=== PATIENT | female | born 1935 | race Caucasian/White ===

== ENCOUNTER 2017-08-25 17:49 | Inpatient (IN) | payer OTHER, MEDICARE ==
--- NOTE | 2017-08-25 18:31 | PDOC ---
History of Present Illness - History of Present Illness Initial Comments: 08/25/17 18:57 The patient is a 82 year old female, with a significant past medical history of diabetes, peripheral neuropathies, and HTN, who came into the emergency department with her family complaining of a persistent headache and dizziness( lightheadedness) for 3 weeks. Patient states she has has been dizzy and lightheaded since falling at home 3 weeks ago. She also has an unsteady gait. She hit her head when she fell and had a CT of the head and neck done on 08/11 at an outpatient clinic. CT results show no fractures or bleed. She denies recent fevers, chills. She denies recent vomit, diarrhea or constipation. She denies recent dysuria, frequency, urgency or hematuria. She denies recent chest pain, abdominal pain, or shortness of breath. 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) CVA: No COPD: No CHF: No Dementia: No Diabetes: Yes GI Disorders: Yes (ACID REFLUX) Disorders: No HTN: Yes Hypercholesterolemia: Yes Liver Disease: No Seizures: No Thyroid Disease: Yes - Surgical History Abdominal Surgery: No Appendectomy: No Cardiac Surgery: No Cholecystectomy: No Lung Surgery: No Neurologic Surgery: No Orthopedic Surgery: No - Suicide/Smoking/Psychosocial Hx Smoking Status: No Smoking History: Never smoked Have you smoked in the past 12 months: No Number of Cigarettes Smoked Daily: 0 Information on smoking cessation initiated: No Hx Alcohol Use: No Drug/Substance Use Hx: No Substance Use Type: None Hx Substance Use Treatment: No <Ruth Faria - Last Filed: 08/25/17 23:13> - Past Medical History Allergies/Adverse Reactions: Allergies Allergy/AdvReac Type Severity Reaction Status Date / Time shellfish derived AdvReac Verified 08/25/17 17:57 Home Medications: Ambulatory Orders Aspirin [ASA -] 81 mg PO DAILY #0 tab.chew 11/26/12 Atorvastatin Calcium [Lipitor] 10 mg PO HS #0 tablet 11/26/12 Levothyroxine [Synthroid -] 75 mcg PO DAILY@0700 #0 tablet 11/26/12 Valsartan [Diovan] 80 mg PO DAILY 12/26/13 Esomeprazole Magnesium [Nexium 24Hr] 20 mg PO DAILY 08/25/17 Glimepiride [Amaryl -] 0 mg PO DAILY 08/25/17 Sitagliptin Phos/Metformin HCl [Janumet 50-500 mg Tablet] 1 each PO BID Review of Systems - Review of Systems Comments:: 08/25/17 18:59 CONSTITUTIONAL: Present: dizziness/light-headedness Absent: fever, no chills, no fatigue EYES: Absent: visual changes ENT: Absent: ear pain, no sore throat CARDIOVASCULAR: Absent: chest pain, no palpitations RESPIRATORY: Absent: cough, no SOB GI: Absent: abdominal pain, no nausea, no vomiting, no constipation, no diarrhea GENITOURINARY: Absent: dysuria, no frequency, no hematuria MUSCULOSKELETAL: Absent: back pain, no arthralgia, no myalgia SKIN: Absent: rash NEURO: Present: headache, unsteady gait <Shelby Ferreira - Last Filed: 08/25/17 21:24> *Physical Exam - Vital Signs Last Vital Signs Temp Pulse Resp BP Pulse Ox 98.9 F 100 H 16 157/92 99 08/25/17 17:54 08/25/17 17:54 08/25/17 17:54 08/25/17 17:54 08/25/17 17:54 - Physical Exam Comments: 08/25/17 19:01 GENERAL: Alert oriented X3. No LAC, no sutures. Well-appearing, well-nourished. No apparent distress. HEENT: No pinpoint for cervical vertebral tendernesses.No evidence of any head trauma.Normocephalic, atraumatic. PERRL, EOM intact. CARDIOVASCULAR: Normal S1, S2. Regular rate and rhythm. PULMONARY: Clear to auscultation bilaterally. ABDOMEN: Soft, non-distended, non-tender. EXTREMITIES: Normal ROM in all four extremities. No pitting edema. No gross deformities. SKIN: Warm, dry. No rash NEUROLOGICAL: + Unsteady gait. Headache. Dizziness. No focal neurological deficits. <Shelby Ferreira - Last Filed: 08/25/17 21:24> - Vital Signs Last Vital Signs Temp Pulse Resp BP Pulse Ox 98.9 F 100 H 16 157/92 99 08/25/17 17:54 08/25/17 17:54 08/25/17 17:54 08/25/17 17:54 08/25/17 17:54 <Ruth Faria - Last Filed: 08/25/17 23:13> ED Treatment Course - LABORATORY CBC & Chemistry Diagram: 08/25/17 18:38 08/25/17 19:10 - Consult/PCP Case discussed with consulting physician: Debi Rubi - Additional Consults Consult/PCP: Dr. Donahue/ Neuro <Shelby Ferreira - Last Filed: 08/25/17 21:24> - LABORATORY CBC & Chemistry Diagram: 08/25/17 18:38 08/25/17 19:10 <Ruth Faria - Last Filed: 08/25/17 23:13> Medical Decision Making - Medical Decision Making 08/25/17 21:04 82-year-old female presents with family members because of dizziness and some increased ataxia. She reports that she fell on August 11 and came as an outpatient to radiology and had a CAT scan of her head and neck at that time. Her primary doctor Center to outpatient radiology is Dr. Martín Whalen. On exam, she is ambulatory, alert and oriented 3, moving all her extremities. She feels she has an unsteady gait that has worsened over the last couple days. CAT scan of the head didn't show any interval development of 0.5 cm hypodense area consistent with an infarct in the right internal capsule c/w acute infarct 08/25/17 23:03 <Ruth Faria - Last Filed: 08/25/17 23:13> *DC/Admit/Observation/Transfer - Attestations Scribe Attestion: 08/25/17 19:05 Documentation prepared by Shelby Ferreira, acting as medical liaison for Ruth Faria MD. <Shelby Ferreira - Last Filed: 08/25/17 21:24> - Discharge Dispostion Admit: Yes <Ruth Faria - Last Filed: 08/25/17 23:13> Diagnosis at time of Disposition: Ataxia Stroke Qualifiers: CVA mechanism: thrombosis Precerebral and cerebral artery: unspecified cerebral artery Qualified Code(s): I63.30 - Cerebral infarction due to thrombosis of unspecified cerebral artery - Referrals
[2017-08-25 19:25] LABS: BASOPHIL 0.7 % (0-2.0); MCH 27.9 pg (25.7-33.7); MEAN CELL VOLUME 84.5 fl (80-96); MEAN PLT VOLUME 9.4 fl (7.5-11.1); NEUTROPHILS 67.8 % (42.8-82.8); PLATELET COUNT 192 K/MM3 (134-434); RDW 15.4 % (11.6-15.6); WHITE BLOOD COUNT 7.8 K/mm3 (4.0-10.0)
[2017-08-25] MEDS ORDERED: MECLIZINE HCL 25 MG TABLET (FP) PO ONE (19:25)
[2017-08-25 20:04] LABS: ALBUMIN 3.8 g/dl (3.4-5.0); ANION GAP 7 (8-16); BILIRUBIN,TOTAL 0.2 mg/dL (0.2-1.0); CALCIUM 8.7 mg/dL (8.5-10.1); CO2 26 mmol/L (21-32); CREATININE 1.1 mg/dL (0.55-1.02); GLUCOSE,RANDOM 61 mg/dL (74-106); SGPT/ALT 24 U/L (12-78); TOT PROT 7.9 g/dl (6.4-8.2)
[2017-08-25 20:06] LABS: ALK PHOS 68 U/L (45-117); TROPONIN I < 0.02 ng/ml (0.00-0.05)
[2017-08-25 20:07] LABS: SGOT/AST 22 U/L (15-37)
[2017-08-25 20:08] LABS: CPK 116 IU/L (26-192)
[2017-08-25] MEDS ORDERED: MECLIZINE HCL 25 MG TABLET (FP) ONE (20:26)
[2017-08-25 20:41] LABS: URINE APPEARANCE CLEAR; URINE BILIRUBIN NEGATIVE (NEGATIVE); URINE BLOOD NEGATIVE (NEGATIVE); URINE COLOR LTYELLOW; URINE GLUCOSE (UA) NEGATIVE (NEGATIVE); URINE KETONE NEGATIVE (NEGATIVE); URINE LEUK ESTERASE NEGATIVE (NEGATIVE); URINE NITRITE NEGATIVE (NEGATIVE); URINE PROTEIN NEGATIVE (NEGATIVE); URINE UROBILINOGEN NEGATIVE mg/dL (0.2-1.0)
[2017-08-25] MEDS ORDERED: ASPIRIN 325 MG TABLET PO ONE (21:09)
[2017-08-25] MEDS ORDERED: ATORVASTATIN CA 40 MG TABLET (FP) PO ONE (21:09)
[2017-08-25] MEDS ORDERED: ASPIRIN 325 MG TABLET ONE (22:01)
[2017-08-25] MEDS ORDERED: ATORVASTATIN CA 40 MG TABLET (FP) ONE (22:01)
[2017-08-25] MEDS ORDERED: ACETAMINOPHEN 325 MG TABLET (FP) PO PRN (23:02)
[2017-08-25 23:59] VITALS: BMI 30.1
[2017-08-26] MEDS: LEVOTHYROXINE NA 75 MCG TABLET (FP) PO SCH (06:24)
[2017-08-26 07:23] LABS: BASOPHIL 0.7 % (0-2.0); EOSINOPHIL 1.7 % (0-4.5); MCH 27.7 pg (25.7-33.7); MEAN CELL VOLUME 83.8 fl (80-96); MEAN PLT VOLUME 8.7 fl (7.5-11.1); NEUTROPHILS 48.9 % (42.8-82.8); PLATELET COUNT 182 K/MM3 (134-434); RDW 14.9 % (11.6-15.6)
[2017-08-26 07:49] LABS: ALBUMIN 3.3 g/dl (3.4-5.0); ANION GAP 6 (8-16); BILIRUBIN,TOTAL 0.2 mg/dL (0.2-1.0); CALCIUM 8.8 mg/dL (8.5-10.1); CHOLESTEROL 119 mg/dL (50-200); CO2 29 mmol/L (21-32); CREATININE 0.9 mg/dL (0.55-1.02); GLUCOSE,RANDOM 61 mg/dL (74-106); SGOT/AST 13 U/L (15-37); SGPT/ALT 21 U/L (12-78); TOT PROT 6.8 g/dl (6.4-8.2)
[2017-08-26 07:56] LABS: ALK PHOS 62 U/L (45-117); CPK 73 IU/L (26-192); THYROID STIMULATING HORMONE 1.14 uIU/ml (0.358-3.74); TROPONIN I < 0.02 ng/ml (0.00-0.05)
--- NOTE | 2017-08-26 08:35 | HP ---
Admitting History and Physical - Admission History of Present Illness: 82 year old female, with a significant past medical history of diabetes, peripheral neuropathies, and HTN, who came into the emergency department with her family complaining of a persistent headache and dizziness(lightheadedness) for 3 weeks. Patient states she has has been dizzy and lightheaded since falling at home 3 weeks ago. She also has an unsteady gait. She hit her head when she fell and had a CT of the head and neck done on 08/11 at an outpatient clinic[address] CT results show no fractures or bleed. - Past Medical History Cardiovascular: Yes: HTN, Hyperlipdemia Pulmonary: No: COPD Endocrine: Yes: Diabetes Mellitus - Smoking History Smoking history: Never smoked Have you smoked in the past 12 months: No Aproximately how many cigarettes per day: 0 - Alcohol/Substance Use Hx Alcohol Use: No <Debi Rubi - Last Filed: 08/26/17 08:36> Home Medications <Debi Rubi - Last Filed: 08/26/17 08:36> <Ruth Faria - Last Filed: 09/01/17 02:35> - Allergies Allergies/Adverse Reactions: Allergies Allergy/AdvReac Type Severity Reaction Status Date / Time shellfish derived AdvReac Verified 08/25/17 17:57 - Home Medications Home Medications: Ambulatory Orders Aspirin [ASA -] 81 mg PO DAILY #0 tab.chew 11/26/12 Atorvastatin Calcium [Lipitor] 10 mg PO HS #0 tablet 11/26/12 Levothyroxine [Synthroid -] 75 mcg PO DAILY@0700 #0 tablet 11/26/12 Aspirin [ASA -] 81 mg PO DAILY tab.chew 08/28/17 Atorvastatin Ca [Lipitor] 40 mg PO HS #30 tablet MDD 1 08/28/17 Metoprolol Tartrate [Lopressor -] 12.5 mg PO BID #30 tablet MDD 2 08/28/17 Valsartan [Diovan] 160 mg PO DAILY #30 tablet MDD 1 08/28/17 Review of Systems - Review of Systems Constitutional: reports: Weakness Cardiovascular: denies: Chest Pain Respiratory: denies: Orthopnea, SOB Gastrointestinal: denies: Abdominal Pain Neurological: reports: Headache, Incoordination, Parasthesia <Debi Rubi - Last Filed: 08/26/17 08:36> Physical Examination Vital Signs: Vital Signs Temperature 98.9 F 08/26/17 05:25 Pulse Rate 74 08/26/17 05:25 Respiratory Rate 18 08/26/17 05:25 Blood Pressure 140/64 08/26/17 05:25 O2 Sat by Pulse Oximetry (%) 99 08/25/17 23:35 Cardiovascular: Yes: S1, S2 Respiratory: Yes: Regular, CTA Bilaterally Gastrointestinal: Yes: Normal Bowel Sounds, Soft. No: Tenderness Edema: No Neurological: Yes: Alert, Oriented Labs: CBC, BMP 08/26/17 05:10 08/26/17 05:10 <Debi Rubi - Last Filed: 08/26/17 08:36> Vital Signs: Vital Signs Temperature 98.2 F 08/28/17 08:47 Pulse Rate 84 08/28/17 08:47 Respiratory Rate 18 08/28/17 08:47 Blood Pressure 128/74 08/28/17 08:47 O2 Sat by Pulse Oximetry (%) 96 08/28/17 08:47 Labs: CBC, BMP 08/26/17 05:10 08/26/17 05:10 <Ruth Faria - Last Filed: 09/01/17 02:35> Imaging - Results Cat Scan: Report Reviewed <Debi Rubi - Last Filed: 08/26/17 08:36> Problem List - Problems (1) Stroke Assessment/Plan: MRI OF HEAD ASA STATIN NEURO CAROTID TELE Code(s): I63.9 - CEREBRAL INFARCTION, UNSPECIFIED Qualifiers: CVA mechanism: thrombosis Precerebral and cerebral artery: unspecified cerebral artery Qualified Code(s): I63.30 - Cerebral infarction due to thrombosis of unspecified cerebral artery; I63.30 - Cerebral infarction due to thrombosis of unspecified cerebral artery; I63.30 - Cerebral infarction due to thrombosis of unspecified cerebral artery; I63.30 - Cerebral infarction due to thrombosis of unspecified cerebral artery (2) HTN (hypertension) Assessment/Plan: INCREASE DIOVAN TO 160 CONTINUE WITH METOPROLOL Code(s): I10 - ESSENTIAL (PRIMARY) HYPERTENSION (3) HLD (hyperlipidemia) Assessment/Plan: ON STATIN CHECK LIPIDS Code(s): E78.5 - HYPERLIPIDEMIA, UNSPECIFIED (4) Diabetes Assessment/Plan: A1C BGM Code(s): E11.9 - TYPE 2 DIABETES MELLITUS WITHOUT COMPLICATIONS <AllisonerwinJenniferkalyn - Last Filed: 08/26/17 08:36> NIH Stroke Scale - Last Known Well Date/Time & Onset Date Last Known Well: 08/23/17 Time Last Known Well: 08:00 (not sure of specific time) - Initial Evaluation Level of consciousness: Alert Ask patient the month and their age: Answers both correctly Ask patient to open & close eyes; make fist and let go: Obeys both correctly Best gaze (horizontal eye movement): Normal Visual field testing: No visual field loss Facial paresis (Show teeth/raise eyebrows/close eyes tight): Normal symmetrical movement Motor Function: Left Arm: Normal Motor Function: Right Arm: Normal (extends arm 90 (or 45) degrees for 10 seconds without drift Motor Function: Left Leg: Normal (extends leg 30 degrees for 5 seconds without drift) Motor Function: Right Leg: Normal (extends leg 30 degrees for 5 seconds without drift) Limb Ataxia: Present in one limb Sensory(Use pinprick test arms,legs,trunk,face/side to side): Normal Best language (Describe picture, name items, read sentences): No Aphasia Dysarthria (read several words): Normal articulation Extinction and Inattention: No abnormality - Total Score NIH Stroke Scale Score: 1 <Ruth Faria - Last Filed: 09/01/17 02:35>
[2017-08-26] MEDS: VALSARTAN 160 MG TABLET (UD) PO SCH (09:18)
[2017-08-26] MEDS: METOPROLOL TARTRATE 25 MG TABLET (FP) PO SCH (09:18)
[2017-08-26] MEDS: HEPARIN NA (PORCINE) 5,000 UNITS/ML 1ML VIAL SQ SCH ×2 (09:18→21:07)
[2017-08-26] MEDS: ASPIRIN 325 MG ENTERIC COATED TABLET (FP) PO SCH (09:18)
--- NOTE | 2017-08-26 09:27 | CON.NEURO ---
Consult - History of Present Illness History of Present Illness: 82 year old female, with a significant past medical history of diabetes, peripheral neuropathies, and HTN, who came into the emergency department with her family complaining of a persistent headache and dizziness(lightheadedness) for 3 weeks. Patient states she has has been dizzy and lightheaded since falling at home 3 weeks ago. She recalls incident, she was going to kitchen and then living room , felt dizziness and hit head on L. CT of the head and neck done on 08/11 at [address] outpatient clinic[address] CT results show no fractures or bleed. no focal weakness or slurred speech or numbness. HD CT 08/25/17 : possible R Internal capsule subacute CVA - History Source History Provided By: Patient - Past Medical History Cardio/Vascular: Yes: HTN, Hyperlipdemia Pulmonary: No: COPD Endocrine: Yes: Diabetes Mellitus - Alcohol/Substance Use Hx Alcohol Use: No - Smoking History Smoking history: Never smoked Have you smoked in the past 12 months: No Aproximately how many cigarettes per day: 0 Home Medications - Allergies Allergies/Adverse Reactions: Allergies Allergy/AdvReac Type Severity Reaction Status Date / Time shellfish derived AdvReac Verified 08/25/17 17:57 - Home Medications Home Medications: Ambulatory Orders Aspirin [ASA -] 81 mg PO DAILY #0 tab.chew 11/26/12 Atorvastatin Calcium [Lipitor] 10 mg PO HS #0 tablet 11/26/12 Levothyroxine [Synthroid -] 75 mcg PO DAILY@0700 #0 tablet 11/26/12 Valsartan [Diovan] 80 mg PO DAILY 12/26/13 Esomeprazole Magnesium [Nexium 24Hr] 20 mg PO DAILY 08/25/17 Glimepiride [Amaryl -] 0 mg PO DAILY 08/25/17 Sitagliptin Phos/Metformin HCl [Janumet 50-500 mg Tablet] 1 each PO BID Physical Exam-Neuro Vital Signs: Vital Signs Temperature 98.9 F 08/26/17 05:25 Pulse Rate 74 08/26/17 05:25 Respiratory Rate 18 08/26/17 05:25 Blood Pressure 140/64 08/26/17 05:25 O2 Sat by Pulse Oximetry (%) 99 08/25/17 23:35 Constitutional: Yes: Well Nourished, No Distress Labs: CBC, BMP 08/26/17 05:10 08/26/17 05:10 INR, PTT INR 1.00 (0.82-1.09) 08/25/17 22:00 - Neuro Exam Level Of Consciousness: Yes: Alert (awake, alert, no dysarthria , EOMI, no facial, motor 5/5, no drift, no ataxia, reflexes symmetric ) Imaging - Results Cat Scan: Report Reviewed, Image Reviewed Problem List - Problems (1) Diabetes Code(s): E11.9 - TYPE 2 DIABETES MELLITUS WITHOUT COMPLICATIONS (2) HLD (hyperlipidemia) Code(s): E78.5 - HYPERLIPIDEMIA, UNSPECIFIED (3) HTN (hypertension) Code(s): I10 - ESSENTIAL (PRIMARY) HYPERTENSION (4) Stroke Code(s): I63.9 - CEREBRAL INFARCTION, UNSPECIFIED Qualifiers: CVA mechanism: thrombosis Precerebral and cerebral artery: unspecified cerebral artery Qualified Code(s): I63.30 - Cerebral infarction due to thrombosis of unspecified cerebral artery; I63.30 - Cerebral infarction due to thrombosis of unspecified cerebral artery; I63.30 - Cerebral infarction due to thrombosis of unspecified cerebral artery; I63.30 - Cerebral infarction due to thrombosis of unspecified cerebral artery Assessment/Plan 82 year old female, with a significant past medical history of diabetes, peripheral neuropathies, and HTN, who came into the emergency department with her family complaining of a persistent headache and dizziness(lightheadedness) for 3 weeks. Patient states she has has been dizzy and lightheaded since falling at home [address] 08/25/17 : possible R Internal capsule subacute CVA nonfocal exam -- possible post concussive , vs new stroke, also r/o temporal arteritis check MRI BRAIN , ESR , CRP Dr Cotto [phone]
[2017-08-26] MEDS ORDERED: VALSARTAN 80 MG TABLET (UD) PO SCH (10:00)
--- NOTE | 2017-08-26 11:17 | EKG ---
Test Reason : Blood Pressure : / mmHG Vent. 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
--- NOTE | 2017-08-26 11:50 | EKG ---
Test Reason : Blood Pressure : / mmHG Vent. Rate : 076 BPM Atrial Rate : 076 BPM P-R Int : 138 ms QRS Dur : 124 ms QT Int : 398 ms P-R-T Axes : 030 -60 -01 degrees QTc Int : 447 ms NORMAL SINUS RHYTHM RIGHT BUNDLE BRANCH BLOCK LEFT ANTERIOR FASCICULAR BLOCK BIFASCICULAR BLOCK INFERIOR INFARCT , AGE UNDETERMINED ABNORMAL ECG WHEN COMPARED WITH ECG OF 25-AUG-2017 18:57, NONSPECIFIC T WAVE ABNORMALITY HAS REPLACED INVERTED T WAVES IN ANTERIOR LEADS Confirmed by JUAN ALVAREZ, EVY ([id number]) on 08/26/2017 11:50:28 AM Referred By: Lexus SALAS Confirmed By:EVY MARTINEZ MD
[2017-08-26] MEDS: INSULIN SLIDING SCALE (NOVOLOG) 1 VIAL SQ SCH ×3 (12:03→21:14)
--- NOTE | 2017-08-26 17:10 | CON.CARD ---
Consult Consult Specialty:: Cardiology Reason for Consultation:: S/P fall. CVA - History of Present Illness Chief Complaint: Presently comfrotable History of Present Illness: This is an 82 year old female with a PMH of DM, peripheral neuropathy, and HTN. She presented to the ED complaining of a persistent headache and about 3 weeks of light headedness. She fell and hit her head about [address] of the head and neck done on 08/11 at an outpatient clinic. CT results show no fractures or bleed. HD CT 08/25/17 : possible R Internal capsule subacute CVA Echocardiogram 08/26/17: NL LV FXN NL RV FXN Moderate LA dilatation Mild MR/TR EF 65% RVSP 26 mmHg EKG NSR RBBB LAFB Carotid Doppler mild dz - Past Medical History Cardio/Vascular: Yes: HTN, Hyperlipdemia Pulmonary: No: COPD Endocrine: Yes: Diabetes Mellitus - Alcohol/Substance Use Hx Alcohol Use: No - Smoking History Smoking history: Never smoked Have you smoked in the past 12 months: No Aproximately how many cigarettes per day: 0 Home Medications - Allergies Allergies/Adverse Reactions: Allergies Allergy/AdvReac Type Severity Reaction Status Date / Time shellfish derived AdvReac Verified 08/25/17 17:57 - Home Medications Home Medications: Ambulatory Orders Aspirin [ASA -] 81 mg PO DAILY #0 tab.chew 11/26/12 Atorvastatin Calcium [Lipitor] 10 mg PO HS #0 tablet 11/26/12 Levothyroxine [Synthroid -] 75 mcg PO DAILY@0700 #0 tablet 11/26/12 Valsartan [Diovan] 80 mg PO DAILY 12/26/13 Esomeprazole Magnesium [Nexium 24Hr] 20 mg PO DAILY 08/25/17 Glimepiride [Amaryl -] 0 mg PO DAILY 08/25/17 Sitagliptin Phos/Metformin HCl [Janumet 50-500 mg Tablet] 1 each PO BID Review of Systems Unable to obtain ROS, reason: As per HPI Vital Signs: Vital Signs Temperature 98.3 F 08/26/17 14:00 Pulse Rate 63 08/26/17 14:00 Respiratory Rate 18 08/26/17 14:00 Blood Pressure 136/62 08/26/17 14:00 O2 Sat by Pulse Oximetry (%) 98 08/26/17 09:00 Constitutional: Yes: Well Nourished, No Distress Neck: Yes: WNL Respiratory: Yes: CTA Bilaterally Gastrointestinal: Yes: Soft Cardiovascular: Yes: Regular Rate and Rhythm (NL S1S2 no MRHG) Edema: No Neurological: Yes: Alert (Grossly non focal), Oriented - Other Data Labs, Other Data: CBC, BMP 08/26/17 05:10 08/26/17 05:10 INR, PTT INR 1.00 (0.82-1.09) 08/25/17 22:00 Troponin, BNP 08/26/17 05:10 Troponin I < 0.02 Troponin, BNP 08/26/17 05:10 Troponin I < 0.02 Assessment/Plan CVA Presently in NSR and hemodynamically stable Contniue ASA 81 mg PO daily Continue Liptitor 10 mg QHS BP Presently BP is well controlled continue valsartan 80 mg PO dialy
[2017-08-26] MEDS: ATORVASTATIN CA 40 MG TABLET (FP) PO SCH (21:06)
--- NOTE | 2017-08-26 22:58 | CONSULT ---
Consult Consult Specialty:: endocrine Reason for Consultation:: diabetes mellitus - History of Present Illness Chief Complaint: dizzyness weakness headache History of Present Illness: 82 year old female with a PMH of DM, peripheral neuropathy, and HTN. She presented to the ED complaining of a persistent headache and about 3 weeks of light headedness. She fell and hit her head about [address] scan 08/11 negative,recurrent persistant dizzynes prompted er admission with new ct finding of cva, evolution - History Source History Provided By: Patient, Family Member - Past Medical History Cardio/Vascular: Yes: HTN, Hyperlipdemia Pulmonary: No: COPD Endocrine: Yes: Diabetes Mellitus - Alcohol/Substance Use Hx Alcohol Use: No - Smoking History Smoking history: Never smoked Have you smoked in the past 12 months: No Aproximately how many cigarettes per day: 0 Home Medications - Allergies Allergies/Adverse Reactions: Allergies Allergy/AdvReac Type Severity Reaction Status Date / Time shellfish derived AdvReac Verified 08/25/17 17:57 - Home Medications Home Medications: Ambulatory Orders Aspirin [ASA -] 81 mg PO DAILY #0 tab.chew 11/26/12 Atorvastatin Calcium [Lipitor] 10 mg PO HS #0 tablet 11/26/12 Levothyroxine [Synthroid -] 75 mcg PO DAILY@0700 #0 tablet 11/26/12 Valsartan [Diovan] 80 mg PO DAILY 12/26/13 Esomeprazole Magnesium [Nexium 24Hr] 20 mg PO DAILY 08/25/17 Glimepiride [Amaryl -] 0 mg PO DAILY 08/25/17 Sitagliptin Phos/Metformin HCl [Janumet 50-500 mg Tablet] 1 each PO BID Review of Systems - Review of Systems Constitutional: reports: Loss of Appetite Eyes: reports: Blurred Vision HENT: reports: No Symptoms, Ringing in Ears Neck: reports: Decreased ROM Cardiovascular: reports: Shortness of Breath Respiratory: reports: Exercise Intolerance, SOB on Exertion Gastrointestinal: reports: Constipation Genitourinary: reports: No Symptoms Breasts: reports: No Symptoms Reported Musculoskeletal: reports: Joint Swelling, Muscle Pain, Muscle Weakness Integumentary: reports: No Symptoms Neurological: reports: Dizziness, Unsteady Gait, Weakness Endocrine: reports: Unexplained Weight Gain Physical Exam Vital Signs: Vital Signs Temperature 98.4 F 08/26/17 21:00 Pulse Rate 662 H 08/26/17 21:00 Respiratory Rate 20 08/26/17 21:00 Blood Pressure 148/90 08/26/17 21:00 O2 Sat by Pulse Oximetry (%) 98 08/26/17 20:26 Constitutional: Yes: Anxious Eyes: Yes: EOM Intact HENT: Yes: Normocephalic Neck: Yes: Trachea Midline Cardiovascular: Yes: Regular Rate and Rhythm Respiratory: Yes: CTA Bilaterally Gastrointestinal: Yes: Normal Bowel Sounds ...Rectal Exam: Yes: Deferred Renal/: Yes: WNL Breast(s): Yes: WNL Musculoskeletal: Yes: Back Pain, Joint Stiffness, Muscle Weakness Extremities: Yes: WNL Edema: No Peripheral Pulses WNL: Yes Neurological: Yes: Alert, Oriented, Numbness, Weakness ...Motor Strength: WNL Labs: CBC, BMP 08/26/17 05:10 08/26/17 05:10 Problem List - Problems (1) Ataxia Code(s): R27.0 - ATAXIA, UNSPECIFIED (2) Diabetes Code(s): E11.9 - TYPE 2 DIABETES MELLITUS WITHOUT COMPLICATIONS (3) HLD (hyperlipidemia) Code(s): E78.5 - HYPERLIPIDEMIA, UNSPECIFIED (4) HTN (hypertension) Code(s): I10 - ESSENTIAL (PRIMARY) HYPERTENSION (5) Stroke Code(s): I63.9 - CEREBRAL INFARCTION, UNSPECIFIED Qualifiers: CVA mechanism: thrombosis Precerebral and cerebral artery: unspecified cerebral artery Qualified Code(s): I63.30 - Cerebral infarction due to thrombosis of unspecified cerebral artery; I63.30 - Cerebral infarction due to thrombosis of unspecified cerebral artery; I63.30 - Cerebral infarction due to thrombosis of unspecified cerebral artery; I63.30 - Cerebral infarction due to thrombosis of unspecified cerebral artery Assessment/Plan Current Active Problems Ataxia (Acute) Diabetes (Acute) HLD (hyperlipidemia) (Acute) HTN (hypertension) (Acute) Stroke (Acute) diabetes mellitus type 2 hyperglycemia hypothyroidism Abnormal Lab Results 08/26/17 08/26/17 08/26/17 05:10 05:10 05:10 Monocytes % 11.1 H Anion Gap 6 L BUN 21 H Random Glucose 61 L Hemoglobin A1c % 6.1 H D AST 13 L D Albumin 3.3 L Triglycerides 209 H Laboratory Results - last 24 hr 08/26/17 08/26/17 08/26/17 05:10 05:10 05:10 WBC 7.0 RBC 4.39 Hgb 12.2 Hct 36.8 MCV 83.8 MCH 27.7 MCHC 33.0 RDW 14.9 Plt Count 182 MPV 8.7 Neutrophils % 48.9 D Lymphocytes % 37.6 D Monocytes % 11.1 H Eosinophils % 1.7 Basophils % 0.7 Sodium 142 Potassium 4.3 Chloride 107 Carbon Dioxide 29 Anion Gap 6 L BUN 21 H Creatinine 0.9 Creat Clearance w eGFR > 60 POC Glucometer Random Glucose 61 L Hemoglobin A1c % 6.1 H D Calcium 8.8 Total Bilirubin 0.2 AST 13 L D ALT 21 Alkaline Phosphatase 62 Creatine Kinase 73 Troponin I < 0.02 C-Reactive Protein Total Protein 6.8 Albumin 3.3 L Triglycerides 209 H Cholesterol 119 Total LDL Cholesterol 52 HDL Cholesterol 50 TSH 1.14 08/26/17 08/26/17 08/26/17 09:35 12:03 15:37 WBC RBC Hgb Hct MCV MCH MCHC RDW Plt Count MPV Neutrophils % Lymphocytes % Monocytes % Eosinophils % Basophils % Sodium Potassium Chloride Carbon Dioxide Anion Gap BUN Creatinine Creat Clearance w eGFR POC Glucometer 102 154 Random Glucose Hemoglobin A1c % Calcium Total Bilirubin AST ALT Alkaline Phosphatase Creatine Kinase Troponin I C-Reactive Protein < 0.3 Total Protein Albumin Triglycerides Cholesterol Total LDL Cholesterol HDL Cholesterol TSH 08/26/17 21:11 WBC RBC Hgb Hct MCV MCH MCHC RDW Plt Count MPV Neutrophils % Lymphocytes % Monocytes % Eosinophils % Basophils % Sodium Potassium Chloride Carbon Dioxide Anion Gap BUN Creatinine Creat Clearance w eGFR POC Glucometer 112 Random Glucose Hemoglobin A1c % Calcium Total Bilirubin AST ALT Alkaline Phosphatase Creatine Kinase Troponin I C-Reactive Protein Total Protein Albumin Triglycerides Cholesterol Total LDL Cholesterol HDL Cholesterol TSH plan: bgm qid novolog insulin dose titrate Current Medications Generic Name Dose Route Start Last Admin Trade Name Freq PRN Reason Stop Dose Admin Acetaminophen 650 mg 08/25/17 23:02 Tylenol - PO Q4H PRN FEVER OR PAIN Aspirin 325 mg 08/26/17 10:00 08/26/17 09:18 Ecotrin - PO 325 mg DAILY [facility] Administration Atorvastatin Calcium 40 mg 08/26/17 22:00 08/26/17 21:06 Lipitor - PO 40 mg HS [facility] Administration Heparin Sodium (Porcine) 5,000 unit 08/26/17 10:00 08/26/17 21:07 Heparin - SQ 5,000 unit BID [facility] Administration Insulin Aspart 1 vial 08/26/17 11:00 08/26/17 21:14 Novolog Vial Sliding Scale - SQ Not Given ACHS [facility] Protocol Levothyroxine Sodium 75 mcg 08/26/17 07:00 08/26/17 06:24 Synthroid - PO 75 mcg DAILY@0700 [facility] Administration Metoprolol Tartrate 25 mg 08/26/17 10:00 08/26/17 09:18 Lopressor - PO 25 mg DAILY [facility] Administration Valsartan 160 mg 08/26/17 10:00 08/26/17 09:18 Diovan - PO 160 mg DAILY [facility] Administration continue synthroid 75mcg
[2017-08-26] MEDS ORDERED: sitaGLIPtin PHOSPHATE 50 MG TABLET PO ONE (23:01)
[2017-08-27] MEDS: INSULIN SLIDING SCALE (NOVOLOG) 1 VIAL SQ SCH ×4 (06:24→21:01)
[2017-08-27] MEDS: LEVOTHYROXINE NA 75 MCG TABLET (FP) PO SCH (06:25)
[2017-08-27 08:23] LABS: FREE T4 1.24 ng/dl (0.76-1.46); THYROID STIMULATING HORMONE 1.2 uIU/ml (0.358-3.74)
--- NOTE | 2017-08-27 08:56 | PN ---
Progress Note (short form) - Note Progress Note: 82 year old female, with a significant past medical history of diabetes, peripheral neuropathies, and HTN, who came into the emergency department with her family complaining of a persistent headache and dizziness(lightheadedness) for 3 weeks. Patient states she has has been dizzy and lightheaded since falling at home 3 weeks ago. She recalls incident, she was going to kitchen and then living room , felt dizziness and hit head on L. CT of the head and neck done on 08/11 at an outpatient clinic[address] CT results show no fractures or bleed. no focal weakness or slurred speech or numbness. 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 sig stenosis - History Source History Provided By: Patient - Past Medical History Cardio/Vascular: Yes: HTN, Hyperlipdemia Pulmonary: No: COPD Endocrine: Yes: Diabetes Mellitus - Alcohol/Substance Use Hx Alcohol Use: No - Smoking History Smoking history: Never smoked Have you smoked in the past 12 months: No Aproximately how many cigarettes per day: 0 Home Medications - Allergies Allergies/Adverse Reactions: Allergies Allergy/AdvReac Type Severity Reaction Status Date / Time shellfish derived AdvReac Verified 08/25/17 17:57 - Home Medications Home Medications: Ambulatory Orders Aspirin [ASA -] 81 mg PO DAILY #0 tab.chew 11/26/12 Atorvastatin Calcium [Lipitor] 10 mg PO HS #0 tablet 11/26/12 Levothyroxine [Synthroid -] 75 mcg PO DAILY@0700 #0 tablet 11/26/12 Valsartan [Diovan] 80 mg PO DAILY 12/26/13 Esomeprazole Magnesium [Nexium 24Hr] 20 mg PO DAILY 08/25/17 Glimepiride [Amaryl -] 0 mg PO DAILY 08/25/17 Sitagliptin Phos/Metformin HCl [Janumet 50-500 mg Tablet] 1 each PO BID Physical Exam-Neuro Vital Signs: Vital Signs Temperature 97.9 F 08/27/17 05:00 Pulse Rate 69 08/27/17 05:00 Respiratory Rate 20 08/27/17 05:00 Blood Pressure 113/60 08/27/17 05:00 O2 Sat by Pulse Oximetry (%) 98 08/26/17 20:26 Constitutional: Yes: Well Nourished, No Distress Labs: CBC, BMP 08/26/17 05:10 08/26/17 05:10 INR, PTT INR 1.00 (0.82-1.09) 08/25/17 22:00 - Neuro Exam Level Of Consciousness: Yes: Alert (awake, alert, no dysarthria , EOMI, no facial, motor 5/5, no drift, no ataxia, reflexes symmetric ) Imaging - Results Cat Scan: Report Reviewed, Image Reviewed Problem List - Problems (1) Diabetes Code(s): E11.9 - TYPE 2 DIABETES MELLITUS WITHOUT COMPLICATIONS (2) HLD (hyperlipidemia) Code(s): E78.5 - HYPERLIPIDEMIA, UNSPECIFIED (3) HTN (hypertension) Code(s): I10 - ESSENTIAL (PRIMARY) HYPERTENSION (4) Stroke Code(s): I63.9 - CEREBRAL INFARCTION, UNSPECIFIED Qualifiers: CVA mechanism: thrombosis Precerebral and cerebral artery: unspecified cerebral artery Qualified Code(s): I63.30 - Cerebral infarction due to thrombosis of unspecified cerebral artery; I63.30 - Cerebral infarction due to thrombosis of unspecified cerebral artery; I63.30 - Cerebral infarction due to thrombosis of unspecified cerebral artery; I63.30 - Cerebral infarction due to thrombosis of unspecified cerebral artery Assessment/Plan 82 year old female, with a significant past medical history of diabetes, peripheral neuropathies, and HTN, who came into the emergency department with her family complaining of a persistent headache and dizziness(lightheadedness) for 3 weeks. Patient states she has has been dizzy and lightheaded since falling at home [address] 08/25/17 : possible R Internal capsule subacute CVA, MRI BRAIN (-) for acute stroke. nonfocal exam -- possible post concussive ,r /o temporal arteritis start PT and FU ESR Dr Cotto [id number] Problem List - Problems (1) Diabetes Code(s): E11.9 - TYPE 2 DIABETES MELLITUS WITHOUT COMPLICATIONS (2) HLD (hyperlipidemia) Code(s): E78.5 - HYPERLIPIDEMIA, UNSPECIFIED (3) HTN (hypertension) Code(s): I10 - ESSENTIAL (PRIMARY) HYPERTENSION (4) Stroke Code(s): I63.9 - CEREBRAL INFARCTION, UNSPECIFIED Qualifiers: CVA mechanism: thrombosis Precerebral and cerebral artery: unspecified cerebral artery Qualified Code(s): I63.30 - Cerebral infarction due to thrombosis of unspecified cerebral artery; I63.30 - Cerebral infarction due to thrombosis of unspecified cerebral artery; I63.30 - Cerebral infarction due to thrombosis of unspecified cerebral artery; I63.30 - Cerebral infarction due to thrombosis of unspecified cerebral artery
[2017-08-27] MEDS: ASPIRIN 325 MG ENTERIC COATED TABLET (FP) PO SCH (09:26)
[2017-08-27] MEDS: METOPROLOL TARTRATE 25 MG TABLET (FP) PO SCH (09:26)
[2017-08-27] MEDS: VALSARTAN 160 MG TABLET (UD) PO SCH (09:26)
[2017-08-27] MEDS: HEPARIN NA (PORCINE) 5,000 UNITS/ML 1ML VIAL SQ SCH ×2 (09:26→21:02)
--- NOTE | 2017-08-27 10:43 | PN ---
Progress Note, Physician Chief Complaint: patient seen today she says that today she is feeling better , dizziness is slightly better gets dizzy when she ambulates to bathroom - Current Medication List Current Medications: Active Medications Acetaminophen (Tylenol -) 650 mg PO Q4H PRN PRN Reason: FEVER OR PAIN Aspirin (Ecotrin -) 325 mg PO DAILY [facility] Last Admin: 08/27/17 09:26 Dose: 325 mg Atorvastatin Calcium (Lipitor -) 40 mg PO HS [facility] Last Admin: 08/26/17 21:06 Dose: 40 mg Heparin Sodium (Porcine) (Heparin -) 5,000 unit SQ BID [facility] Last Admin: 08/27/17 09:26 Dose: 5,000 unit Insulin Aspart (Novolog Vial Sliding Scale -) 1 vial SQ ACHS [facility] PRN Reason: Protocol Last Admin: 08/27/17 06:24 Dose: Not Given Levothyroxine Sodium (Synthroid -) 75 mcg PO DAILY@0700 [facility] Last Admin: 08/27/17 06:25 Dose: 75 mcg Metoprolol Tartrate (Lopressor -) 25 mg PO DAILY [facility] Last Admin: 08/27/17 09:26 Dose: 25 mg Valsartan (Diovan -) 160 mg PO DAILY [facility] Last Admin: 08/27/17 09:26 Dose: 160 mg - Objective Vital Signs: Vital Signs Temperature 97.9 F 08/27/17 05:00 Pulse Rate 69 08/27/17 05:00 Respiratory Rate 20 08/27/17 05:00 Blood Pressure 113/60 08/27/17 05:00 O2 Sat by Pulse Oximetry (%) 98 08/26/17 20:26 Constitutional: Yes: Calm, Thin Neck: Yes: Trachea Midline Cardiovascular: Yes: Regular Rate and Rhythm, S1, S2 Respiratory: Yes: CTA Bilaterally Edema: No Neurological: Yes: Alert, Oriented Labs: CBC, BMP 08/26/17 05:10 08/26/17 05:10 INR, PTT INR 1.00 (0.82-1.09) 08/25/17 22:00 Problem List - Problems (1) Ataxia Assessment/Plan: PT seen by neuro MRI shows old BG infarct carotid doppler ok ECHO ok as well Code(s): R27.0 - ATAXIA, UNSPECIFIED (2) Diabetes Assessment/Plan: hga1c 6.1 bgm ok seen by endo Code(s): E11.9 - TYPE 2 DIABETES MELLITUS WITHOUT COMPLICATIONS (3) HLD (hyperlipidemia) Assessment/Plan: statin Code(s): E78.5 - HYPERLIPIDEMIA, UNSPECIFIED (4) HTN (hypertension) Assessment/Plan: diovan Code(s): I10 - ESSENTIAL (PRIMARY) HYPERTENSION (5) Stroke Assessment/Plan: h/o [facility] aspirin, statin Code(s): I63.9 - CEREBRAL INFARCTION, UNSPECIFIED Qualifiers: CVA mechanism: thrombosis Precerebral and cerebral artery: unspecified cerebral artery Qualified Code(s): I63.30 - Cerebral infarction due to thrombosis of unspecified cerebral artery; I63.30 - Cerebral infarction due to thrombosis of unspecified cerebral artery; I63.30 - Cerebral infarction due to thrombosis of unspecified cerebral artery; I63.30 - Cerebral infarction due to thrombosis of unspecified cerebral artery (6) Hypothyroid Assessment/Plan: on synthroid Code(s): E03.9 - HYPOTHYROIDISM, UNSPECIFIED
--- NOTE | 2017-08-27 16:20 | PN ---
Progress Note, Physician Chief Complaint: Presently comfortable History of Present Illness: This is an 82 year old female with a PMH of DM, peripheral neuropathy, and HTN. She presented to the ED complaining of a persistent headache and about 3 weeks of light headedness. She fell and hit her head about [address] of the head and neck done on 08/11 at an outpatient clinic[address] CT results show no fractures or bleed. HD CT 08/25/17 : possible R Internal capsule subacute CVA Echocardiogram 08/26/17: NL LV FXN NL RV FXN Moderate LA dilatation Mild MR/TR EF 65% RVSP 26 mmHg EKG NSR RBBB LAFB Carotid Doppler mild dz - Current Medication List Current Medications: Active Medications Acetaminophen (Tylenol -) 650 mg PO Q4H PRN PRN Reason: FEVER OR PAIN Aspirin (Asa -) 81 mg PO DAILY [facility] Atorvastatin Calcium (Lipitor -) 40 mg PO HS [facility] Last Admin: 08/26/17 21:06 Dose: 40 mg Heparin Sodium (Porcine) (Heparin -) 5,000 unit SQ BID [facility] Last Admin: 08/27/17 09:26 Dose: 5,000 unit Insulin Aspart (Novolog Vial Sliding Scale -) 1 vial SQ ACHS [facility] PRN Reason: Protocol Last Admin: 08/27/17 11:35 Dose: Not Given Levothyroxine Sodium (Synthroid -) 75 mcg PO DAILY@0700 [facility] Last Admin: 08/27/17 06:25 Dose: 75 mcg Metoprolol Tartrate (Lopressor -) 25 mg PO DAILY [facility] Last Admin: 08/27/17 09:26 Dose: 25 mg Valsartan (Diovan -) 160 mg PO DAILY [facility] Last Admin: 08/27/17 09:26 Dose: 160 mg - Objective Vital Signs: Vital Signs Temperature 98.1 F 08/27/17 15:00 Pulse Rate 66 08/27/17 15:00 Respiratory Rate 18 08/27/17 15:00 Blood Pressure 113/59 08/27/17 15:00 O2 Sat by Pulse Oximetry (%) 97 08/27/17 09:00 Constitutional: Yes: Well Nourished, No Distress Neck: Yes: WNL Cardiovascular: Yes: Regular Rate and Rhythm (NL S1S2, no MRHG) Respiratory: Yes: CTA Bilaterally Gastrointestinal: Yes: Soft Extremities: Yes: WNL Edema: No Neurological: Yes: Alert, Oriented Labs: CBC, BMP 08/26/17 05:10 08/26/17 05:10 INR, PTT INR 1.00 (0.82-1.09) 08/25/17 22:00 Assessment/Plan CVA Presently in NSR and hemodynamically stable Contniue ASA 81 mg PO daily Continue Liptitor 40 mg QHS BP Presently BP is well controlled continue valsartan 160 mg PO dialy Continue metoprolol tartrate but would give it BID in divided doses since it is short acting (12.5 mg PO Q12h)
[2017-08-27] MEDS: ATORVASTATIN CA 40 MG TABLET (FP) PO SCH (21:02)
--- NOTE | 2017-08-27 23:06 | PN ---
Progress Note, Physician Chief Complaint: ambulating no complaint,denies vertigo,has mild ballance issue History of Present Illness: dm,cva,htn hyperlipidemia,now clinically improved - Current Medication List Current Medications: Active Medications Acetaminophen (Tylenol -) 650 mg PO Q4H PRN PRN Reason: FEVER OR PAIN Aspirin (Asa -) 81 mg PO DAILY [facility] Atorvastatin Calcium (Lipitor -) 40 mg PO HS [facility] Last Admin: 08/27/17 21:02 Dose: 40 mg Heparin Sodium (Porcine) (Heparin -) 5,000 unit SQ BID [facility] Last Admin: 08/27/17 21:02 Dose: Not Given Insulin Aspart (Novolog Vial Sliding Scale -) 1 vial SQ ACHS [facility] PRN Reason: Protocol Last Admin: 08/27/17 21:01 Dose: Not Given Levothyroxine Sodium (Synthroid -) 75 mcg PO DAILY@0700 [facility] Last Admin: 08/27/17 06:25 Dose: 75 mcg Metoprolol Tartrate (Lopressor -) 25 mg PO DAILY [facility] Last Admin: 08/27/17 09:26 Dose: 25 mg Valsartan (Diovan -) 160 mg PO DAILY [facility] Last Admin: 08/27/17 09:26 Dose: 160 mg - Objective Vital Signs: Vital Signs Temperature 98.6 F 08/27/17 20:00 Pulse Rate 72 08/27/17 20:00 Respiratory Rate 20 08/27/17 20:00 Blood Pressure 136/63 08/27/17 20:00 O2 Sat by Pulse Oximetry (%) 96 08/27/17 21:00 Constitutional: Yes: Well Nourished Eyes: Yes: EOM Intact HENT: Yes: Normocephalic Neck: Yes: Trachea Midline Cardiovascular: Yes: Regular Rate and Rhythm Respiratory: Yes: Regular Gastrointestinal: Yes: Normal Bowel Sounds ...Rectal Exam: Yes: Deferred Breast(s): Yes: WNL Musculoskeletal: Yes: WNL Extremities: Yes: WNL Edema: No Peripheral Pulses WNL: Yes Integumentary: Yes: WNL Neurological: Yes: WNL, Alert, Oriented Labs: CBC, BMP 08/26/17 05:10 08/26/17 05:10 INR, PTT INR 1.00 (0.82-1.09) 08/25/17 22:00 Problem List - Problems (1) Ataxia Code(s): R27.0 - ATAXIA, UNSPECIFIED (2) Diabetes Code(s): E11.9 - TYPE 2 DIABETES MELLITUS WITHOUT COMPLICATIONS (3) HLD (hyperlipidemia) Code(s): E78.5 - HYPERLIPIDEMIA, UNSPECIFIED (4) HTN (hypertension) Code(s): I10 - ESSENTIAL (PRIMARY) HYPERTENSION (5) Stroke Code(s): I63.9 - CEREBRAL INFARCTION, UNSPECIFIED Qualifiers: CVA mechanism: thrombosis Precerebral and cerebral artery: unspecified cerebral artery Qualified Code(s): I63.30 - Cerebral infarction due to thrombosis of unspecified cerebral artery; I63.30 - Cerebral infarction due to thrombosis of unspecified cerebral artery; I63.30 - Cerebral infarction due to thrombosis of unspecified cerebral artery; I63.30 - Cerebral infarction due to thrombosis of unspecified cerebral artery Assessment/Plan Current Active Problems Ataxia (Acute) Diabetes (Acute) HLD (hyperlipidemia) (Acute) HTN (hypertension) (Acute) Hypothyroid (Acute) Stroke (Acute) Laboratory Results - last 24 hr 08/27/17 08/27/17 08/27/17 05:15 05:15 05:27 ESR 21 POC Glucometer 86 TSH 1.20 D Free T4 1.24 08/27/17 08/27/17 08/27/17 11:34 17:04 20:46 ESR POC Glucometer 133 135 175 TSH Free T4 plan: continue with bp controll asa for cva bgm novolog insulin physical therapy
[2017-08-28] MEDS: LEVOTHYROXINE NA 75 MCG TABLET (FP) PO SCH (06:08)
[2017-08-28] MEDS: INSULIN SLIDING SCALE (NOVOLOG) 1 VIAL SQ SCH (06:08)
--- NOTE | 2017-08-28 08:07 | PN ---
Progress Note (short form) - Note Progress Note: 82 year old female, with a significant past medical history of diabetes, peripheral neuropathies, and HTN, who came into the emergency department with her family complaining of a persistent headache and dizziness(lightheadedness) for 3 weeks. Patient states she has has been dizzy and lightheaded since falling at home 3 weeks ago. She recalls incident, she was going to kitchen and then living room , felt dizziness and hit head on L. CT of the head and neck done on 08/11 at [address] outpatient clinic[address] CT results show no fractures or bleed. no focal weakness or slurred speech or numbness. HD CT 08/25/17 : possible R Internal capsule subacute CVA FU : dizziness better , mild lingering [place] ESR -21 MRI noted chronic BG infarct, no acute stroke, Doppler - no hemodyn. sig stenosis - History Source History Provided By: Patient - Past Medical History Cardio/Vascular: Yes: HTN, Hyperlipdemia Pulmonary: No: COPD Endocrine: Yes: Diabetes Mellitus - Alcohol/Substance Use Hx Alcohol Use: No - Smoking History Smoking history: Never smoked Have you smoked in the past 12 months: No Aproximately how many cigarettes per day: 0 Home Medications - Allergies Allergies/Adverse Reactions: Allergies Allergy/AdvReac Type Severity Reaction Status Date / Time shellfish derived AdvReac Verified 08/25/17 17:57 - Home Medications Home Medications: Ambulatory Orders Aspirin [ASA -] 81 mg PO DAILY #0 tab.chew 11/26/12 Atorvastatin Calcium [Lipitor] 10 mg PO HS #0 tablet 11/26/12 Levothyroxine [Synthroid -] 75 mcg PO DAILY@0700 #0 tablet 11/26/12 Valsartan [Diovan] 80 mg PO DAILY 12/26/13 Esomeprazole Magnesium [Nexium 24Hr] 20 mg PO DAILY 08/25/17 Glimepiride [Amaryl -] 0 mg PO DAILY 08/25/17 Sitagliptin Phos/Metformin HCl [Janumet 50-500 mg Tablet] 1 each PO BID Physical Exam-Neuro Vital Signs: Vital Signs Temperature 97.9 F 08/27/17 05:00 Pulse Rate 69 08/27/17 05:00 Respiratory Rate 20 08/27/17 05:00 Blood Pressure 113/60 08/27/17 05:00 O2 Sat by Pulse Oximetry (%) 98 08/26/17 20:26 Constitutional: Yes: Well Nourished, No Distress Labs: CBC, BMP 08/26/17 05:10 08/26/17 05:10 INR, PTT INR 1.00 (0.82-1.09) 08/25/17 22:00 - Neuro Exam Level Of Consciousness: Yes: Alert (awake, alert, no dysarthria , EOMI, no facial, motor 5/5, no drift, no ataxia, reflexes symmetric ) Imaging - Results Cat Scan: Report Reviewed, Image Reviewed Problem List - Problems (1) Diabetes Code(s): E11.9 - TYPE 2 DIABETES MELLITUS WITHOUT COMPLICATIONS (2) HLD (hyperlipidemia) Code(s): E78.5 - HYPERLIPIDEMIA, UNSPECIFIED (3) HTN (hypertension) Code(s): I10 - ESSENTIAL (PRIMARY) HYPERTENSION (4) Stroke Code(s): I63.9 - CEREBRAL INFARCTION, UNSPECIFIED Qualifiers: CVA mechanism: thrombosis Precerebral and cerebral artery: unspecified cerebral artery Qualified Code(s): I63.30 - Cerebral infarction due to thrombosis of unspecified cerebral artery; I63.30 - Cerebral infarction due to thrombosis of unspecified cerebral artery; I63.30 - Cerebral infarction due to thrombosis of unspecified cerebral artery; I63.30 - Cerebral infarction due to thrombosis of unspecified cerebral artery Assessment/Plan 82 year old female, with a significant past medical history of diabetes, peripheral neuropathies, and HTN, who came into the emergency department with her family complaining of a persistent headache and dizziness(lightheadedness) for 3 weeks. Patient states she has has been dizzy and lightheaded since falling at home [address] 08/25/17 : possible R Internal capsule subacute CVA, MRI BRAIN (-) for acute stroke. nonfocal exam -- most likely post concussive Sx with [place] no evidence of temporal arteritis (ESR (-) stable for Dc home from neuro standpoint Dr Cotto [phone] Problem List - Problems (1) Diabetes Code(s): E11.9 - TYPE 2 DIABETES MELLITUS WITHOUT COMPLICATIONS (2) HLD (hyperlipidemia) Code(s): E78.5 - HYPERLIPIDEMIA, UNSPECIFIED (3) HTN (hypertension) Code(s): I10 - ESSENTIAL (PRIMARY) HYPERTENSION (4) Stroke Code(s): I63.9 - CEREBRAL INFARCTION, UNSPECIFIED Qualifiers: CVA mechanism: thrombosis Precerebral and cerebral artery: unspecified cerebral artery Qualified Code(s): I63.30 - Cerebral infarction due to thrombosis of unspecified cerebral artery; I63.30 - Cerebral infarction due to thrombosis of unspecified cerebral artery; I63.30 - Cerebral infarction due to thrombosis of unspecified cerebral artery; I63.30 - Cerebral infarction due to thrombosis of unspecified cerebral artery
--- NOTE | 2017-08-28 08:30 | CONS ---
DATE OF CONSULTATION: 08/28/2017 REFERRING PHYSICIAN: Martín Whalen MD HISTORY OF PRESENT ILLNESS: Patient is an 82-year-old woman with past medical history of diabetes who was admitted on August 25 or early on August 26 with headache, dizziness/lightheadedness. Patient fell about 3 weeks prior to admission and noted unsteady gait. A cane has been recommended, but she has not used it yet. She did undergo a CT of the head on admission as well as a brain MRI which demonstrated right internal capsule chronic infarcts. Patient also has a history of diabetic peripheral neuropathy. She had normal CBC on admission and followup blood work on August 26 showed WBC 7.0, hemoglobin 12.2, platelet count 182. Patient also underwent chemistry and had slight elevation BUN 21, creatinine 0.9. Hemoglobin A1c is fairly good at 6.1. Albumin low at 3.3. Elevated triglycerides of 1.14. C-reactive protein was less than 0.3 and troponin less than 0.02. Patient also underwent carotid Doppler study which showed mild atherosclerotic disease but no hemodynamically significant stenosis. Patient is followed by Neurology and was seen by Physical Therapy. Able to ambulate about 50 feet with light contact guard, transfer supervision. A slight loss of balance was noted. Patient currently feels fairly well with only a slight headache. No blurry vision, double vision. No current dizziness, but she does get light headed at times. REVIEW OF PAST MEDICAL AND SURGICAL HISTORY: Diabetes, diabetic peripheral neuropathy, hypertension. SOCIAL HISTORY: Lives with her in a private house. She has got about 10 steps to enter and she can stay on 1 level but does have stairs inside the home. Premorbidly, she states she ambulated without assistive device. Does not smoke tobacco and does not drink alcohol. REVIEW OF SYSTEMS: Again, a little bit of lightheadedness and a headache but no jeremiah vertigo. No blurry vision, double vision. No nausea, vomiting, difficulty swallowing, difficulty chewing. No chest pain or shortness of breath. No fever, chills. No bowel, bladder incontinence, but she does have chronic ongoing frequent urination and urge incontinence. She has also some numbness and tingling in the distal lower extremities but none in the upper extremities. No joint arthralgias. No neck or back pain. No skin rash. No significant weight loss, weight gain. PHYSICAL EXAMINATION: General: Slightly overweight woman seen both sitting, standing as well as ambulating in the room. HEENT: She is normocephalic and atraumatic. Her extraocular muscles appear intact. She has no obvious facial weakness. No ulcers or dry mucous membranes. NECK: Supple. EXTREMITIES: Without any pitting edema or calf tenderness. NEUROMUSCULAR: She is awake, alert, oriented x3. Cranial nerves II-XII grossly intact. She has good motor power in the upper and lower extremities and normal sensation to light touch, pinprick even distally in the lower extremities. She has normal and symmetric reflexes in the upper extremities, depressed in the lower extremities. Toes equivocal. She is able to perform bed mobility, stand with fairly good balance and ambulate without any loss of balance and without device at the bedside, just handheld supervision. OVERALL IMPRESSION: 1. Deficits of mobility and activities of daily living with appear to be very mild, possible balance disorder. 2. Possible subacute or chronic cerebrovascular accident, right basal ganglion. 3. Underlying diabetic peripheral neuropathy. 4. Diabetes. 5. Hypertension. 6. Hypothyroidism. 7. Hypoalbuminemia. 8. Status post renal insufficiency. PLAN/SUGGESTIONS: 1. Physical therapy to continue at the bedside. 2. Out of bed to chair. 3. Encourage p.o. fluids. 4. Diabetic foot precautions. 5. Safety fall precautions. 6. Consider dietary consultation or nutritional support. 7. Patient could probably go home with home care outpatient therapy once medically stabilized. Thank you for this referral. HUANG AU M.D. [id number]
[2017-08-28 08:54] VITALS: BP 128/74; PULSE 84; TEMP 98.2
[2017-08-28] MEDS: VALSARTAN 160 MG TABLET (UD) PO SCH (09:00)
[2017-08-28] MEDS: HEPARIN NA (PORCINE) 5,000 UNITS/ML 1ML VIAL SQ SCH (09:00)
[2017-08-28] MEDS: METOPROLOL TARTRATE 25 MG TABLET (FP) PO SCH (09:00)
--- NOTE | 2017-08-28 09:49 | DS ---
Physical Examination Vital Signs: Vital Signs Temperature 98.2 F 08/28/17 08:47 Pulse Rate 84 08/28/17 08:47 Respiratory Rate 18 08/28/17 08:47 Blood Pressure 128/74 08/28/17 08:47 O2 Sat by Pulse Oximetry (%) 96 08/28/17 08:47 awake alert dizziness resolved Headache is less intense Constitutional: Yes: Calm Neck: Yes: Trachea Midline Cardiovascular: Yes: Regular Rate and Rhythm, S1, S2 Respiratory: Yes: CTA Bilaterally Gastrointestinal: Yes: Normal Bowel Sounds, Soft Edema: No Neurological: Yes: Alert, Oriented Labs: CBC, BMP 08/26/17 05:10 08/26/17 05:10 Discharge Summary Reason For Visit: DIABETESMELLITUS/ATAXIA/CEREBROVASCULAR ACCIDENT Current Active Problems Ataxia (Acute) Diabetes (Acute) HLD (hyperlipidemia) (Acute) HTN (hypertension) (Acute) Hypothyroid (Acute) Stroke (Acute) Hospital Course: v Admission History of Present Illness: 82 year old female, with a significant past medical history of diabetes, peripheral neuropathies, and HTN, who came into the emergency department with her family complaining of a persistent headache and dizziness(lightheadedness) for 3 weeks. Patient states she has has been dizzy and lightheaded since falling at home 3 weeks ago. She also has an unsteady gait. She hit her head when she fell and had a CT of the head and neck done on 08/11 [address] clinic[address] CT results show no fractures or bleed. - Past Medical History Cardiovascular: Yes: HTN, Hyperlipdemia Pulmonary: No: COPD Endocrine: Yes: Diabetes Mellitus - Smoking History Smoking history: Never smoked Have you smoked in the past 12 months: No Aproximately how many cigarettes per day: 0 - Alcohol/Substance Use Hx Alcohol Use: No seen by neurology and cardiology had MRI and MRA show old BG infarct old CVA on aspirin and statin carotid doppler and echo is ok headache is less intense ESR normal HTN and tachyacardia NSR stop diovan increase metoprolol 75mg bid hypothyroid on synthroid 75 mcg daily Condition: Improved - Instructions Diet, Activity, Other Instructions: FU with PMD in 2 weeks stop diovan Referrals: Martín Whalen MD [Primary Care Provider] - Disposition: HOME - Home Medications Comprehensive Discharge Medication List: Ambulatory Orders Aspirin [ASA -] 81 mg PO DAILY #0 tab.chew 11/26/12 Atorvastatin Calcium [Lipitor] 10 mg PO HS #0 tablet 11/26/12 Levothyroxine [Synthroid -] 75 mcg PO DAILY@0700 #0 tablet 11/26/12 Valsartan [Diovan] 80 mg PO DAILY 12/26/13 Esomeprazole Magnesium [Nexium 24Hr] 20 mg PO DAILY 08/25/17 Glimepiride [Amaryl -] 0 mg PO DAILY 08/25/17 Sitagliptin Phos/Metformin HCl [Janumet 50-500 mg Tablet] 1 each PO BID
[2017-08-28] MEDS ORDERED: ASPIRIN 81 MG CHEWABLE TABLETS PO SCH (10:00)
[2017-08-28] MEDS ORDERED: METOPROLOL TARTRATE 25 MG TABLET (FP) PO SCH (10:00)
--- NOTE | 2017-09-01 02:37 | PDOC ---
NIH Stroke Scale - Last Known Well Date/Time & Onset Date Last Known Well: 08/23/17 Time Last Known Well: 08:00 (not sure of specific time) - Initial Evaluation Level of consciousness: Alert Ask patient the month and their age: Answers both correctly Ask patient to open & close eyes; make fist and let go: Obeys both correctly Best gaze (horizontal eye movement): Normal Visual field testing: No visual field loss Facial paresis (Show teeth/raise eyebrows/close eyes tight): Normal symmetrical movement Motor Function: Left Arm: Normal Motor Function: Right Arm: Normal (extends arm 90 (or 45) degrees for 10 seconds without drift Motor Function: Left Leg: Normal (extends leg 30 degrees for 5 seconds without drift) Motor Function: Right Leg: Normal (extends leg 30 degrees for 5 seconds without drift) Limb Ataxia: Present in one limb Sensory(Use pinprick test arms,legs,trunk,face/side to side): Normal Best language (Describe picture, name items, read sentences): No Aphasia Dysarthria (read several words): Normal articulation Extinction and Inattention: No abnormality - Total Score NIH Stroke Scale Score: 1
--- NOTE | 2017-09-01 02:40 | PDOC ---
tPA Exclusion checklist 3-4.5h - Time Elapsed Date last known well: 08/23/17 Time last known well: 08:00 (not sure of specific time) Elaspsed time: 8 Day(s) and 18 Hour(s) and 39 Minutes - Thrombolytic Therapy Candidate Is patient eligible for thrombolytic therapy: No - Exclusion Criteria 3-4.5 hr SBP greater than 185 or DBP greater than 110mmHg despite tx: No Recent IC/spinal surgery,head trauma or stroke<3mos.: Yes Hx IC hemorrhage, IC neoplasm, AV malformation or aneurysm: No Active internal bleeding: No Blding diathesis(low plt ct, inc PTT,INR>1.7 or use of NOAC): No Symptoms suggest subarachnoid hemorrhage: No CT demonstrates multilobar infarct(>1/3 cerebral hemiphere): Yes Arterial puncture at noncompressible site in previous 7 days: No Blood glucose concentration less than 50mg/dL (2.7mmol/L): No - Relative Exclusion Criteria 3-4.5 hr Life expectancy <1 yr or severe co-morbid illness: No : No Patient/family refused: No Stroke severity too mild: Yes Recent acute VA (w/in previous 3 months): No Seizure at onset with postictal residual neuro impairments: No Major surgery or serious trauma w/in previous 14 days: No Recent GI or hemorrhage (w/in previous 21 days): No - Add'l Relative Exclusion 3-4.5 hr Age > 80: Yes Hx of both diabetes AND prior ischemic stroke: No NIHSS >25: No - Ineligibility reason(s) Reasons No tPA given: Outside of window - delayed arrival
== END 2017-08-28 11:47 | disposition home or self-care (01) | DRG 89 ==
LOC: JER 17:49 → JERBED 21:15 → J4W 23:24
PROVIDERS: ADMIT Family Medicine; ATTEND Family Medicine
PROC: B246ZZZ Ultrasonography of Right and Left Heart (ICD-10-PCS; principal; 2017-08-26)
DX: S06.0X0A Concussion without loss of consciousness, initial encounter (principal); I45.2 Bifascicular block; E11.65 Type 2 diabetes mellitus with hyperglycemia; R27.0 Ataxia, unspecified; I10 Essential (primary) hypertension; G62.9 Polyneuropathy, unspecified; K21.9 Gastro-esophageal reflux disease without esophagitis; E78.5 Hyperlipidemia, unspecified; J44.9 Chronic obstructive pulmonary disease, unspecified; E03.9 Hypothyroidism, unspecified; R51 Headache; Z79.84 Long term (current) use of oral hypoglycemic drugs; W19.XXXA Unspecified fall, initial encounter; Y93.9 Activity, unspecified; Y92.099 Unspecified place in other non-institutional residence as the place of occurrence of the external cause
CPT/HCPCS: 36415; 70450-TC; 70551-TC; 71010-TC; 80053; 80061; 81003; 83036; 83721; 84439; 84443; 84484; 85025; 85610; 85651; 86140; 93005; 93010; 93306-TC; 93880-TC; 97116-GP; 99285-25; J1644

== ENCOUNTER 2021-11-14 21:09 | Inpatient (IN) | payer OTHER, MEDICARE ==
[2021-11-14] MEDS ORDERED: METOPROLOL TARTRATE 5 MG/5 ML VIAL IVPUSH ONE (22:47)
[2021-11-14] MEDS ORDERED: METOPROLOL TARTRATE 5 MG/5 ML VIAL ONE (22:51)
[2021-11-14 23:18] LABS: BASO % 0.1 % (0-2.0); HEMATOCRIT 32.5 % (32.4-45.2); HEMOGLOBIN 10.6 GM/dL (10.7-15.3); LYMPH % 10.7 % (8-40); MCH 28.5 pg (25.7-33.7); MCHC 32.6 g/dl (32.0-36.0); MEAN CELL VOLUME 87.3 fl (80-96); MEAN PLT VOLUME 8.7 fl (7.5-11.1); MONO % 7.8 % (3.8-10.2); NEUT % 81.4 % (42.8-82.8); PLATELET COUNT 152 10^3/uL (134-434); RBC 3.73 M/mm3 (3.60-5.2); RDW 15.8 % (11.6-15.6)
[2021-11-14 23:21] LABS: EPI CELLS 15 /uL (0-25.1); HYALINE CASTS 1 /uL (0-3.1); PH,URINE 5.5 (5.0-8.0); URINE APPEARANCE CLEAR; URINE BACTERIA 3997 /uL (0-1359); URINE BILIRUBIN NEGATIVE (NEGATIVE); URINE COLOR YELLOW; URINE GLUCOSE (UA) NEGATIVE (NEGATIVE); URINE KETONE NEGATIVE (NEGATIVE); URINE LEUK ESTERASE 1+ (NEGATIVE); URINE NITRITE NEGATIVE (NEGATIVE); URINE PROTEIN 1+ (NEGATIVE); URINE RBC 5 /uL (0-23.9); URINE UROBILINOGEN 0.2 mg/dL (0.2-1.0); URINE WBC 65 /uL (0-25.8)
[2021-11-14 23:27] LABS: INR 1.07 (0.83-1.09)
[2021-11-14 23:30] LABS: ACTIVATED PTT 32.6 SECONDS (25.2-36.5)
[2021-11-14 23:38] LABS: CHLORIDE 106 mmol/L (98-107); SODIUM 137 mmol/L (136-145)
[2021-11-14 23:41] LABS: ANION GAP 10 MMOL/L (8-16); BLOOD UREA NITROGEN 35.8 mg/dL (7-18); CALCIUM 7.3 mg/dL (8.5-10.1); CO2 21 mmol/L (21-32)
[2021-11-14 23:42] LABS: ALBUMIN 2.6 g/dl (3.4-5.0); GLUCOSE,RANDOM 221 mg/dL (74-106)
[2021-11-14 23:45] LABS: CREATININE 1.6 mg/dL (0.55-1.3); SGOT/AST 25 U/L (15-37); SGPT/ALT 16 U/L (13-61)
[2021-11-14 23:46] LABS: BILIRUBIN,TOTAL 0.5 mg/dL (0.2-1); TOT PROT 6.6 g/dl (6.4-8.2)
[2021-11-14 23:47] LABS: ALK PHOS 64 U/L (45-117)
[2021-11-15] MEDS ORDERED: CEFTRIAXONE 1,000 MG in DEXTROSE 5%-WATER - 50 ML IVPB ONE (00:04)
[2021-11-15] MEDS ORDERED: SODIUM CHLORIDE 0.9% 500 ML INFUS.BAG IV ONE (00:04)
[2021-11-15] MEDS ORDERED: DEXAMETHASONE SOD PHOSPHATE 4 MG/1 ML VIAL IVPUSH ONE (00:24)
[2021-11-15] MEDS ORDERED: AZITHROMYCIN IVPB 500 MG in DEXTROSE 5%-WATER - 250 ML IVPB ONE (00:26)
[2021-11-15] MEDS ORDERED: CEFTRIAXONE 1 GM/50 ML BAG ONE (00:28)
[2021-11-15] MEDS ORDERED: AZITHROMYCIN IVPB 500 MG/250 ML BAG IVPB ONE (01:25)
[2021-11-15] MEDS ORDERED: HEPARIN NA (PORCINE) 5,000 UNITS/ML 1ML VIAL ONE (02:02)
[2021-11-15] MEDS ORDERED: METOPROLOL TARTRATE 5 MG/5 ML VIAL IVPUSH PRN (02:22)
[2021-11-15] MEDS ORDERED: METOPROLOL TARTRATE 25 MG TABLET (FP) PO ONE (02:22)
[2021-11-15] MEDS ORDERED: SODIUM CHLORIDE 1,000 ML IV SCH (02:30)
[2021-11-15] MEDS ORDERED: METOPROLOL TARTRATE 25 MG TABLET (FP) PO PRN (03:14)
[2021-11-15] MEDS ORDERED: HEPARIN NA (PORCINE) 5,000 UNITS/ML 1ML VIAL SQ SCH (06:00)
[2021-11-15] MEDS: HEPARIN NA (PORCINE) 5,000 UNITS/ML 1ML VIAL SQ SCH ×3 (06:08→21:42)
[2021-11-15] MEDS: INSULIN SLIDING SCALE (NOVOLOG) 1 VIAL SQ SCH ×4 (06:41→21:48)
[2021-11-15 07:52] LABS: HEMATOCRIT 29.1 % (32.4-45.2); HEMOGLOBIN 9.5 GM/dL (10.7-15.3); LYMPH % 20.6 % (8-40); MCH 28.6 pg (25.7-33.7); MCHC 32.6 g/dl (32.0-36.0); MEAN CELL VOLUME 87.8 fl (80-96); MEAN PLT VOLUME 8.6 fl (7.5-11.1); MONO % 4.7 % (3.8-10.2); NEUT % 72.7 % (42.8-82.8); PLATELET COUNT 151 10^3/uL (134-434); RBC 3.32 M/mm3 (3.60-5.2); RDW 15.9 % (11.6-15.6); WHITE BLOOD COUNT 5.8 K/mm3 (4.0-10.0)
[2021-11-15 08:14] LABS: BLOOD UREA NITROGEN 26.3 mg/dL (7-18); MAGNESIUM 1.6 mg/dL (1.8-2.4)
[2021-11-15 08:18] LABS: CREATININE 1.2 mg/dL (0.55-1.3)
[2021-11-15] MEDS ORDERED: REMDESIVIR 200 MG in SODIUM CHLORIDE 250 ML IVPB ONE (11:00)
[2021-11-15] MEDS: LEVOTHYROXINE NA 88 MCG TABLET (FP) PO SCH (11:34)
[2021-11-15] MEDS: DEXAMETHASONE SOD PHOSPHATE 4 MG/1 ML VIAL IVPUSH SCH (11:35)
[2021-11-15] MEDS: ASPIRIN 81 MG CHEWABLE TABLETS PO SCH (11:36)
[2021-11-15] MEDS: ALLOPURINOL 100 MG TABLET (FP) PO SCH (11:36)
[2021-11-15] MEDS: AZITHROMYCIN 250 MG TABLET PO SCH (11:36)
[2021-11-15] MEDS: ZINC SULFATE 220 MG CAPSULE (FP) PO SCH (11:36)
[2021-11-15] MEDS: ASCORBIC ACID 500 MG TABLET (FP) PO SCH (11:36)
[2021-11-15] MEDS: metoPROLOL SUCCINATE 25 MG TAB.SR.24H (FP) PO SCH (11:36)
[2021-11-15] MEDS ORDERED: CEFTRIAXONE 1 GM in DEXTROSE 5%-WATER - 50 ML IVPB ONE (18:00)
[2021-11-15] MEDS ORDERED: cefTRIAXone SODIUM 1 GM VIAL ONE (18:04)
[2021-11-15] MEDS ORDERED: DEXTROSE 5%-WATER - 50 ML IVPB ONE (18:04)
[2021-11-15] MEDS: ATORVASTATIN CA 40 MG TABLET (FP) PO SCH (21:42)
[2021-11-16] MEDS: HEPARIN NA (PORCINE) 5,000 UNITS/ML 1ML VIAL SQ SCH (05:48)
[2021-11-16] MEDS: INSULIN SLIDING SCALE (NOVOLOG) 1 VIAL SQ SCH ×4 (05:59→21:00)
[2021-11-16] MEDS: LEVOTHYROXINE NA 88 MCG TABLET (FP) PO SCH (06:19)
[2021-11-16] MEDS ORDERED: PT OWN MED DRAWER 7, Y5N ONE (09:19)
[2021-11-16] MEDS: DEXAMETHASONE SOD PHOSPHATE 4 MG/1 ML VIAL IVPUSH SCH (09:43)
[2021-11-16] MEDS: metoPROLOL SUCCINATE 25 MG TAB.SR.24H (FP) PO SCH (09:44)
[2021-11-16] MEDS: ALLOPURINOL 100 MG TABLET (FP) PO SCH (09:44)
[2021-11-16] MEDS: ASCORBIC ACID 500 MG TABLET (FP) PO SCH (09:44)
[2021-11-16] MEDS: AZITHROMYCIN 250 MG TABLET PO SCH (09:44)
[2021-11-16] MEDS: ASPIRIN 81 MG CHEWABLE TABLETS PO SCH (09:44)
[2021-11-16] MEDS: ZINC SULFATE 220 MG CAPSULE (FP) PO SCH (09:44)
[2021-11-16] MEDS: METOPROLOL TARTRATE 5 MG/5 ML VIAL IVPUSH PRN (09:47)
[2021-11-16] MEDS ORDERED: dilTIAZem HCL 25 MG/5 ML - 5 ML VIAL IVPUSH ONE (10:33)
[2021-11-16] MEDS ORDERED: DEXTROSE 5%-WATER - 50 ML IVPB ONE (11:35)
[2021-11-16] MEDS ORDERED: cefTRIAXone SODIUM 1 GM VIAL ONE (11:35)
[2021-11-16] MEDS: CEFTRIAXONE 1 GM in DEXTROSE 5%-WATER - 50 ML IVPB SCH (11:40)
[2021-11-16] MEDS: REMDESIVIR 100 MG in SODIUM CHLORIDE 250 ML IVPB SCH (12:32)
[2021-11-16] MEDS: APIXABAN 2.5 MG TABLET PO SCH ×2 (12:32→21:00)
[2021-11-16 12:47] LABS: HEMOGLOBIN 10.3 GM/dL (10.7-15.3); LYMPH % 9.4 % (8-40); MCH 28.3 pg (25.7-33.7); MCHC 32.3 g/dl (32.0-36.0); MEAN CELL VOLUME 87.8 fl (80-96); MEAN PLT VOLUME 8.6 fl (7.5-11.1); MONO % 3.4 % (3.8-10.2); NEUT % 87.2 % (42.8-82.8); PLATELET COUNT 206 10^3/uL (134-434); RBC 3.65 M/mm3 (3.60-5.2); WHITE BLOOD COUNT 8.4 K/mm3 (4.0-10.0)
[2021-11-16 13:17] LABS: ALBUMIN 2.2 g/dl (3.4-5.0); BLOOD UREA NITROGEN 28.1 mg/dL (7-18); MAGNESIUM 1.9 mg/dL (1.8-2.4)
[2021-11-16 13:20] LABS: CREATININE 1.1 mg/dL (0.55-1.3)
[2021-11-16 13:22] LABS: BILIRUBIN,TOTAL 0.2 mg/dL (0.2-1); TOT PROT 6.2 g/dl (6.4-8.2)
[2021-11-16 13:32] LABS: CALCIUM 8.4 mg/dL (8.5-10.1)
[2021-11-16 16:52] VITALS: BMI 36.5
[2021-11-16] MEDS ORDERED: amLODIPine BESYLATE 5 MG TABLET (FP) PO ONE (20:28)
[2021-11-16] MEDS: ATORVASTATIN CA 40 MG TABLET (FP) PO SCH (21:00)
[2021-11-17] MEDS: LEVOTHYROXINE NA 88 MCG TABLET (FP) PO SCH (06:43)
[2021-11-17] MEDS: INSULIN SLIDING SCALE (NOVOLOG) 1 VIAL SQ SCH ×4 (06:43→22:11)
[2021-11-17] MEDS ORDERED: DEXTROSE 5%-WATER - 50 ML IVPB ONE (09:25)
[2021-11-17] MEDS ORDERED: cefTRIAXone SODIUM 1 GM VIAL ONE (09:25)
[2021-11-17] MEDS: metoPROLOL SUCCINATE 25 MG TAB.SR.24H (FP) PO SCH (10:32)
[2021-11-17] MEDS: DEXAMETHASONE SOD PHOSPHATE 4 MG/1 ML VIAL IVPUSH SCH (10:32)
[2021-11-17] MEDS: APIXABAN 2.5 MG TABLET PO SCH ×2 (10:32→22:11)
[2021-11-17] MEDS: CEFTRIAXONE 1 GM in DEXTROSE 5%-WATER - 50 ML IVPB SCH (10:32)
[2021-11-17] MEDS: AZITHROMYCIN 250 MG TABLET PO SCH (10:32)
[2021-11-17] MEDS: ASCORBIC ACID 500 MG TABLET (FP) PO SCH (10:33)
[2021-11-17] MEDS: ALLOPURINOL 100 MG TABLET (FP) PO SCH (10:33)
[2021-11-17] MEDS: ZINC SULFATE 220 MG CAPSULE (FP) PO SCH (10:33)
[2021-11-17] MEDS: amLODIPine BESYLATE 2.5 MG TABLET (FP) PO SCH (11:25)
[2021-11-17] MEDS: REMDESIVIR 100 MG in SODIUM CHLORIDE 250 ML IVPB SCH (11:26)
[2021-11-17 13:36] LABS: HEMATOCRIT 31.5 % (32.4-45.2); HEMOGLOBIN 10.5 GM/dL (10.7-15.3); LYMPH % 6.4 % (8-40); MCH 28.6 pg (25.7-33.7); MCHC 33.2 g/dl (32.0-36.0); MEAN PLT VOLUME 8.2 fl (7.5-11.1); MONO % 3.8 % (3.8-10.2); NEUT % 89.8 % (42.8-82.8); PLATELET COUNT 235 10^3/uL (134-434); RBC 3.66 M/mm3 (3.60-5.2); RDW 15.6 % (11.6-15.6); WHITE BLOOD COUNT 10.3 K/mm3 (4.0-10.0)
[2021-11-17 13:56] LABS: CALCIUM 8.5 mg/dL (8.5-10.1)
[2021-11-17 13:57] LABS: ALBUMIN 2.3 g/dl (3.4-5.0); BLOOD UREA NITROGEN 29.3 mg/dL (7-18); MAGNESIUM 1.7 mg/dL (1.8-2.4)
[2021-11-17 14:00] LABS: CREATININE 1.2 mg/dL (0.55-1.3)
[2021-11-17 14:01] LABS: BILIRUBIN,TOTAL 0.2 mg/dL (0.2-1)
[2021-11-17 14:02] LABS: TOT PROT 6.4 g/dl (6.4-8.2)
[2021-11-17] MEDS ORDERED: MAGNESIUM OXIDE 400 MG TABLET (FP) PO ONE (15:15)
[2021-11-17] MEDS: ATORVASTATIN CA 40 MG TABLET (FP) PO SCH (22:11)
[2021-11-18] MEDS: INSULIN SLIDING SCALE (NOVOLOG) 1 VIAL SQ SCH ×4 (06:44→22:19)
[2021-11-18] MEDS: LEVOTHYROXINE NA 88 MCG TABLET (FP) PO SCH (06:46)
[2021-11-18] MEDS ORDERED: DEXTROSE 5%-WATER - 50 ML IVPB ONE (09:00)
[2021-11-18] MEDS ORDERED: cefTRIAXone SODIUM 1 GM VIAL ONE (09:00)
[2021-11-18] MEDS: CEFTRIAXONE 1 GM in DEXTROSE 5%-WATER - 50 ML IVPB SCH (13:11)
[2021-11-18] MEDS: REMDESIVIR 100 MG in SODIUM CHLORIDE 250 ML IVPB SCH (13:12)
[2021-11-18] MEDS: ALLOPURINOL 100 MG TABLET (FP) PO SCH (13:12)
[2021-11-18] MEDS: ASCORBIC ACID 500 MG TABLET (FP) PO SCH (13:12)
[2021-11-18] MEDS: AZITHROMYCIN 250 MG TABLET PO SCH (13:12)
[2021-11-18] MEDS: ZINC SULFATE 220 MG CAPSULE (FP) PO SCH (13:12)
[2021-11-18] MEDS: DEXAMETHASONE SOD PHOSPHATE 4 MG/1 ML VIAL IVPUSH SCH (13:13)
[2021-11-18] MEDS: metoPROLOL SUCCINATE 25 MG TAB.SR.24H (FP) PO SCH (13:13)
[2021-11-18] MEDS: APIXABAN 2.5 MG TABLET PO SCH ×2 (13:13→22:09)
[2021-11-18] MEDS: amLODIPine BESYLATE 2.5 MG TABLET (FP) PO SCH (13:13)
[2021-11-18] MEDS: ATORVASTATIN CA 40 MG TABLET (FP) PO SCH (22:09)
[2021-11-19] MEDS: METOPROLOL TARTRATE 5 MG/5 ML VIAL IVPUSH PRN (00:47)
[2021-11-19] MEDS ORDERED: METOPROLOL TARTRATE 25 MG TABLET (FP) PO ONE (01:00)
[2021-11-19] MEDS: LEVOTHYROXINE NA 88 MCG TABLET (FP) PO SCH (06:13)
[2021-11-19] MEDS: INSULIN SLIDING SCALE (NOVOLOG) 1 VIAL SQ SCH ×4 (06:17→22:08)
[2021-11-19] MEDS ORDERED: DEXTROSE 5%-WATER - 50 ML IVPB ONE (09:08)
[2021-11-19] MEDS ORDERED: cefTRIAXone SODIUM 1 GM VIAL ONE (09:08)
[2021-11-19] MEDS: CEFTRIAXONE 1 GM in DEXTROSE 5%-WATER - 50 ML IVPB SCH (09:30)
[2021-11-19] MEDS: metoPROLOL SUCCINATE 25 MG TAB.SR.24H (FP) PO SCH ×2 (09:31→22:06)
[2021-11-19] MEDS: APIXABAN 2.5 MG TABLET PO SCH ×2 (09:31→22:06)
[2021-11-19] MEDS: ZINC SULFATE 220 MG CAPSULE (FP) PO SCH (09:31)
[2021-11-19] MEDS: ALLOPURINOL 100 MG TABLET (FP) PO SCH (09:31)
[2021-11-19] MEDS: ASCORBIC ACID 500 MG TABLET (FP) PO SCH (09:31)
[2021-11-19] MEDS: DEXAMETHASONE SOD PHOSPHATE 4 MG/1 ML VIAL IVPUSH SCH (09:32)
[2021-11-19] MEDS: amLODIPine BESYLATE 2.5 MG TABLET (FP) PO SCH (09:32)
[2021-11-19] MEDS: REMDESIVIR 100 MG in SODIUM CHLORIDE 250 ML IVPB SCH (11:41)
[2021-11-19 15:31] LABS: BASO % 0.1 % (0-2.0); HEMOGLOBIN 10.9 GM/dL (10.7-15.3); LYMPH % 6.3 % (8-40); MCH 28.1 pg (25.7-33.7); MEAN CELL VOLUME 85.4 fl (80-96); MEAN PLT VOLUME 8.2 fl (7.5-11.1); MONO % 3.3 % (3.8-10.2); NEUT % 90.3 % (42.8-82.8); PLATELET COUNT 267 10^3/uL (134-434); RBC 3.87 M/mm3 (3.60-5.2); RDW 15.9 % (11.6-15.6); WHITE BLOOD COUNT 12.6 K/mm3 (4.0-10.0)
[2021-11-19] MEDS ORDERED: PT OWN MED DRAWER 7, Y5N ONE (22:00)
[2021-11-19] MEDS ORDERED: INSULIN (LEVEMIR) 100 UNITS/ML UNITS SQ SCH (22:00)
[2021-11-19] MEDS: ATORVASTATIN CA 40 MG TABLET (FP) PO SCH (22:06)
[2021-11-19] MEDS: CEFUROXIME AXETIL 500 MG TABLET PO SCH (22:07)
[2021-11-20] MEDS ORDERED: NAPHAZOLINE/PHENIRAMINE OPHTHALMIC 15 ML BOTTLE OU PRN (05:54)
[2021-11-20] MEDS: INSULIN SLIDING SCALE (NOVOLOG) 1 VIAL SQ SCH ×2 (06:46→11:52)
[2021-11-20] MEDS: LEVOTHYROXINE NA 88 MCG TABLET (FP) PO SCH (06:46)
[2021-11-20 08:24] LABS: HEMATOCRIT 33.2 % (32.4-45.2); HEMOGLOBIN 11.1 GM/dL (10.7-15.3); LYMPH % 11.3 % (8-40); MCH 28.5 pg (25.7-33.7); MCHC 33.3 g/dl (32.0-36.0); MEAN CELL VOLUME 85.6 fl (80-96); MEAN PLT VOLUME 7.9 fl (7.5-11.1); MONO % 8.6 % (3.8-10.2); NEUT % 80.1 % (42.8-82.8); PLATELET COUNT 283 10^3/uL (134-434); RBC 3.88 M/mm3 (3.60-5.2); RDW 15.6 % (11.6-15.6); WHITE BLOOD COUNT 12.1 K/mm3 (4.0-10.0)
[2021-11-20 08:44] LABS: CALCIUM 8.3 mg/dL (8.5-10.1)
[2021-11-20 08:45] LABS: ALBUMIN 2.3 g/dl (3.4-5.0); BLOOD UREA NITROGEN 38.2 mg/dL (7-18); MAGNESIUM 1.7 mg/dL (1.8-2.4)
[2021-11-20 08:48] LABS: CREATININE 1.1 mg/dL (0.55-1.3)
[2021-11-20 08:49] LABS: BILIRUBIN,TOTAL 0.3 mg/dL (0.2-1)
[2021-11-20] MEDS ORDERED: amLODIPine BESYLATE 5 MG TABLET (FP) PO SCH (10:00)
[2021-11-20] MEDS: DEXAMETHASONE SOD PHOSPHATE 4 MG/1 ML VIAL IVPUSH SCH (10:16)
[2021-11-20] MEDS: APIXABAN 2.5 MG TABLET PO SCH (10:17)
[2021-11-20] MEDS: metoPROLOL SUCCINATE 25 MG TAB.SR.24H (FP) PO SCH (10:17)
[2021-11-20] MEDS: ASCORBIC ACID 500 MG TABLET (FP) PO SCH (10:17)
[2021-11-20] MEDS: ZINC SULFATE 220 MG CAPSULE (FP) PO SCH (10:17)
[2021-11-20] MEDS: ALLOPURINOL 100 MG TABLET (FP) PO SCH (10:17)
[2021-11-20] MEDS ORDERED: PT OWN MED DRAWER 7, Y5N ONE ×2 (10:18→10:52)
[2021-11-20] MEDS: CEFUROXIME AXETIL 500 MG TABLET PO SCH (10:19)
[2021-11-20 13:57] VITALS: BP 141/64; PULSE 64; TEMP 98.3
== END 2021-11-20 18:14 | disposition home or self-care (01) | DRG 177 ==
LOC: JER 21:09 → JERBED 11-15 00:07 → J4S 11-15 03:42
PROVIDERS: ADMIT Hospitalist; ATTEND Nurse Practitioner Acute Care
PROC: XW033E5 Introduction of Remdesivir Anti-infective into Peripheral Vein, Percutaneous Approach, New Technology Group 5 (ICD-10-PCS; principal; 2021-11-15)
DX: U07.1 COVID-19 (principal); J12.82 Pneumonia due to coronavirus disease 2019; G93.41 Metabolic encephalopathy; N39.0 Urinary tract infection, site not specified; N17.9 Acute kidney failure, unspecified; E03.9 Hypothyroidism, unspecified; I48.91 Unspecified atrial fibrillation; K21.9 Gastro-esophageal reflux disease without esophagitis; E78.00 Pure hypercholesterolemia, unspecified; I48.0 Paroxysmal atrial fibrillation; I45.10 Unspecified right bundle-branch block; R41.82 Altered mental status, unspecified; E16.2 Hypoglycemia, unspecified; M10.9 Gout, unspecified; R09.02 Hypoxemia; E11.649 Type 2 diabetes mellitus with hypoglycemia without coma; B96.20 Unspecified Escherichia coli [E. coli] as the cause of diseases classified elsewhere
CPT/HCPCS: 36415; 70450-TC; 71045-TC-FY; 80048; 80053; 81003; 82550; 82728; 82962; 83036; 83615; 83735; 84100; 84439; 84443; 84484; 85025; 85379; 85610; 85730; 86140; 87086; 87186; 93005; 93010; 94761; 97116-GP; 97161-GP; 99285-25; C9399; C9803; J1644; U0003; U0005